=== PATIENT | female | born 1960 | race Caucasian/White ===

== ENCOUNTER 2018-10-16 05:00 | Day surgery (SDC) | payer OTHER ==
[~2018-10-16 05:00] MED LIST: NEURONTIN600 MG; STERILE SALINE126 ML
== END 2018-10-16 10:35 | disposition home or self-care (01) ==
LOC: CIR.AMB 05:00
DX: R15.9 Full incontinence of feces (principal)
CPT/HCPCS: 64581; C1778

== ENCOUNTER 2018-10-30 05:11 | Day surgery (SDC) | payer OTHER | END 2018-10-30 11:10 | disposition home or self-care (01) | LOC: CIR.AMB 05:11 | DX: R15.9 Full incontinence of feces (principal) | CPT/HCPCS: 64590; C1767 ==

== ENCOUNTER 2023-11-10 09:08 | Day surgery (SDC) | payer OTHER ==
[~2023-11-10 09:08] MED LIST changes: +COZAAR100 MG PO; +PLAVIX75 MG PO; +SIMVASTATIN5 MG
[2023-11-10] MEDS ORDERED: LIDOCAINE HCL 1%/Epi 20ML VIAL IJ ONE (17:13)
[2023-11-10] MEDS ORDERED: BUPIVACAINE HCL/PF 0.5% 30ML ML ONE (17:13)
[2023-11-10] MEDS ORDERED: CEFAZOLIN SODIUM 1,000 MG VIAL ONE (17:14)
[2023-11-10] MEDS ORDERED: CHLORHEXIDINE GLUCONATE 120 ML BOTTLE TOP ONE (17:25)
== END 2023-11-10 19:10 | disposition home or self-care (01) ==
LOC: CIR.AMB 09:08
PROVIDERS: ATTEND Colon & Rectal Surgery
DX: R15.9 Full incontinence of feces (principal); T85.113A Breakdown (mechanical) of implanted electronic neurostimulator, generator, initial encounter; Z91.041 Radiographic dye allergy status; Z88.6 Allergy status to analgesic agent; Z20.822 Contact with and (suspected) exposure to COVID-19; I10 Essential (primary) hypertension; E78.5 Hyperlipidemia, unspecified
CPT/HCPCS: 64590; 95971; C1767